=== PATIENT | male | born 1930 | race Caucasian/White ===

== ENCOUNTER 2021-07-28 00:22 | Emergency (ER) | payer MEDICARE, MEDICAID ==
[~2021-07-28] VITALS: Ht 170.2 cm; Wt 87.5 kg
[2021-07-28] MEDS ORDERED: TYLOPHEN500 MG PO (00:36)
[2021-07-28] MEDS ORDERED: AVODART0.5 MG PO (00:37)
[2021-07-28] MEDS ORDERED: TYLENOL325 MG PO (00:37)
[2021-07-28] MEDS ORDERED: ASPIRIN325 PO (00:37)
[2021-07-28] MEDS ORDERED: EAR WAX DROPS15 ML RT. EAR (00:38)
[2021-07-28] MEDS ORDERED: COLACE100 MG PO (00:38)
[2021-07-28] MEDS ORDERED: VITAMIN D250 MC1 PO (00:38)
[2021-07-28] MEDS ORDERED: FLONASE 0.05%50 MCG NASAL (00:39)
[2021-07-28] MEDS ORDERED: ISOSORBIDE DINI30 MG PO (00:39)
[2021-07-28] MEDS ORDERED: SUPER THERAVIT1 EACH PO (00:40)
[2021-07-28] MEDS ORDERED: MELATONIN3 M1 PO (00:40)
[2021-07-28] MEDS ORDERED: LOVASTATIN 20 M20 MG PO (00:40)
[2021-07-28] MEDS ORDERED: MIRALAX119 GM PO (00:41)
[2021-07-28] MEDS ORDERED: PREDNISOLONE ACE5 ML LT. EYE (00:41)
[2021-07-28] MEDS ORDERED: NITROSTAT0.4 M1 SUBLING (00:41)
[2021-07-28] MEDS ORDERED: ULTRAM 50MG TAB50 MG PO (00:42)
[2021-07-28] MEDS ORDERED: FLOMAX0.4 MG PO (00:42)
[2021-07-28] MEDS ORDERED: TUMS200 MG PO (00:43)
[2021-07-28] MEDS ORDERED: TRAZODONE HCL50 MG PO (00:44)
[2021-07-28] MEDS ORDERED: ZYRTEC10 M5 PO (00:45)
[2021-07-28] MEDS ORDERED: VOLTAREN ARTHRI20 GM TOP (00:45)
[2021-07-28 01:41] VITALS: BP 115/72
--- NOTE | 2021-07-28 11:03 | EKG ---
[place] [address] ELECTROCARDIOGRAM REPORT Name: TRU OLIOV Room: [facility]#: [id number] Admission: 07/28/21 Attend Phys: Discharge: 07/28/21 Date of : [birth year] Date of Service: 07/28/21 0028 Report #: [id number] THIS REPORT FOR: //name// [facility] ED Test Date: 2021-07-28 Test Time: 00:28:09 Pat Name: TRU OLIVO Department: Room: Gender: Dehairer: : 1930 Requested By: Macey London Order Number: [id number] MD: Alex Telles Measurements Intervals [place] Rate: 91 P: 43 OK: 211 QRS: -40 QRSD: 123 T: 35 QT: 376 QTc: 463 Interpretive Statements Sinus rhythm Multiple ventricular premature complexes Borderline prolonged OK interval Nonspecific IVCD with LAD Left ventricular hypertrophy No previous ECG available for comparison Electronically Signed On 07-28-2021 11:02:43 [employer] by Alex Telles [email or web address] <ELECTRONICALLY SIGNED> By: Alex Telles MD, [facility] 07/28/21 1102 0028 0028 Alex Telles MD, [facility] /EPI
== END 2021-07-28 01:41 | disposition home or self-care (01) ==
LOC: M.ERS 00:22
DX: Z71.1 Person with feared health complaint in whom no diagnosis is made (principal); Z79.891 Long term (current) use of opiate analgesic; Z79.1 Long term (current) use of non-steroidal anti-inflammatories (NSAID); Z79.82 Long term (current) use of aspirin; Z79.899 Other long term (current) drug therapy